=== PATIENT | female | born 1945 | race Caucasian/White ===

== ENCOUNTER → 2023-05-13 09:48 | Outpatient (REF) | payer MEDICARE, OTHER, SELFPAY ==
[2023-05-13 11:28] LABS: Blood Urea Nitrogen 17 mg/dl (7-17); Calcium 9.3 mg/dl (8.4-10.2); Carbon Dioxide 25 mmol/L (22-30); Chloride 104 mmol/L (98-107); Glucose 90 mg/dl (70-99); Magnesium 1.6 mg/dl (1.6-2.3); Potassium 4.3 mmol/L (3.5-5.1); Sodium 136 mmol/L (135-145); eGFR > 60.00
== END ==
LOC: REG 09:48
PROVIDERS: ATTENDING PHYSICIAN Internal Medicine
DX: R53.83 Other fatigue (principal); E87.6 Hypokalemia
CPT/HCPCS: 36415; 80048; 83735

== ENCOUNTER → 2024-01-28 10:31 | Outpatient (REF) | payer MEDICARE, OTHER, SELFPAY ==
[2024-01-28 11:54] LABS: % Basophils 0.4 % (0-2); % Eosinophils 1.2 % (0-6); % Immature Granulocytes 0.4 % (0-0.5); % Lymphocytes 37.5 % (20.5-51.1); % Monocytes 6.5 % (1.7-9.3); Absolute Eosinophils 0.1 10^3/uL (0-0.7); Absolute Lymphocytes 3.6 10^3/uL (1.2-3.4); Absolute Monocytes 0.6 10^3/uL (0.1-0.6); Absolute Neutrophils 5.1 10^3/uL (1.4-6.5); Hematocrit 45.2 % (37.0-47.0); Hemoglobin 15.1 g/dL (12.0-16.0); Mean Corp Hgb Conc. 33.4 g/dL (33.0-37.0); Mean Corpuscular Volume 89.7 fL (81.0-99.0); Mean Platelet Volume 12.6 fL (7.4-10.4); Nucleated Red Blood Cells % 0 %; Platelet Count 248 10^3/uL (130-400); Red Blood Cell Count 5.04 10^6/uL (4.20-5.40); Red Cell Dist. Width 13.8 % (11.5-14.5); White Blood Cell Count 9.5 10^3/uL (4.8-10.8)
[2024-01-28 12:17] LABS: ALT (SGPT) 20 U/L (0-35); AST (SGOT) 21 U/L (14-36); Albumin 5.1 g/dl (3.5-5.0); Alkaline Phosphatase 96 U/L (38-126); Blood Urea Nitrogen 20 mg/dl (7-17); Calcium 9.7 mg/dl (8.4-10.2); Carbon Dioxide 23 mmol/L (22-30); Chloride 102 mmol/L (98-107); Glucose 99 mg/dl (70-99); HDL Cholesterol 84 mg/dl; LDL Cholesterol, Calculated 185 mg/dl; Magnesium 1.5 mg/dl (1.6-2.3); Potassium 4.7 mmol/L (3.5-5.1); Sodium 139 mmol/L (135-145); Total Bilirubin 0.6 mg/dl (0.2-1.3); Total Cholesterol 311 mg/dl (50-199); Total Protein 9.1 g/dl (6.3-8.2); Triglyceride 214 mg/dl (10-149); Very Low Density Lipoprotein 42 mg/dl (0-30); eGFR > 60.00
[2024-01-28 12:50] LABS: Vitamin D, 25-OH*** 35.1 ng/mL (30-80)
[2024-01-28 13:04] LABS: TSH Reflex To Free T4 1.13 uIU/ml (0.47-4.68)
[2024-01-28 13:40] LABS: Folate > 20.0 ng/ml (2.76-20)
[2024-01-28 14:38] LABS: Vitamin B12 444 pg/ml (239-931)
== END ==
LOC: REG 10:31
PROVIDERS: ATTENDING PHYSICIAN Internal Medicine
DX: E78.49 Other hyperlipidemia (principal); D51.1 Vitamin B12 deficiency anemia due to selective vitamin B12 malabsorption with proteinuria; M85.80 Other specified disorders of bone density and structure, unspecified site
CPT/HCPCS: 36415; 80053; 80061; 82306; 82607; 82746; 83735; 84443; 85025

== ENCOUNTER → 2024-01-30 09:34 | Outpatient (REF) | payer MEDICARE, OTHER, SELFPAY | LOC: REG 09:34 | PROVIDERS: ATTENDING PHYSICIAN Internal Medicine | DX: R77.9 Abnormality of plasma protein, unspecified (principal) | CPT/HCPCS: 36415; 84155; 84165 ==

== ENCOUNTER → 2024-04-06 09:08 | Outpatient (REF) | payer MEDICARE, OTHER, SELFPAY ==
[2024-04-06 11:44] LABS: Blood Urea Nitrogen 20 mg/dl (7-17); Calcium 9.4 mg/dl (8.4-10.2); Carbon Dioxide 26 mmol/L (22-30); Chloride 100 mmol/L (98-107); Glucose 99 mg/dl (70-99); Potassium 4.4 mmol/L (3.5-5.1); Sodium 138 mmol/L (135-145); eGFR > 60.00
== END ==
LOC: SDSPAT 09:08
PROVIDERS: ATTENDING PHYSICIAN Student in an Organized Health Care Education/Training Program; FAMILY PHYSICIAN Internal Medicine
DX: Z01.818 Encounter for other preprocedural examination (principal)
CPT/HCPCS: 36415; 80048; 93005

== ENCOUNTER 2024-04-19 06:10 | Day surgery (SDC) | payer MEDICARE, OTHER, SELFPAY ==
--- NOTE | 2024-04-07 14:43 | PTCARENOTE ---
Abnormal ECG done 04/06/24, reviewed by Dr Rajan, no further interventions requested.
[2024-04-19] VITALS (11 sets, daily range): BP systolic 114–176; BP diastolic 59–77
[2024-04-19] MEDS: TYLENOL 1000 MG PO (08:36)
[2024-04-19] MEDS: MOBIC 15 MG PO (08:36)
[2024-04-19] MEDS: NORMOSOL-R/PLASMALYTE-A 1000 IV (08:37)
[2024-04-19] MEDS: DEMEROL 12.5 MG IV (11:12)
[2024-04-19] MEDS: SUBLIMAZE 25 MCG IV ×2 (11:25→11:37)
== END 2024-04-19 13:30 | disposition home or self-care (01) ==
LOC: SDS 06:10
PROVIDERS: ATTENDING PHYSICIAN Student in an Organized Health Care Education/Training Program
DX: T84.84XA Pain due to internal orthopedic prosthetic devices, implants and grafts, initial encounter (principal); Y83.1 Surgical operation with implant of artificial internal device as the cause of abnormal reaction of the patient, or of later complication, without mention of misadventure at the time of the procedure
CPT/HCPCS: 20680